=== PATIENT | male | born 1985 | race Caucasian/White ===

== ENCOUNTER 2018-02-16 23:24 | Emergency (ER) | payer OTHER ==
[~2018-02-16] VITALS: Ht 182.9 cm; Wt 90.0 kg
[2018-02-17 00:06] VITALS: BP 142/63; PULSE 78; RESP 18; TEMP 98.3; O2SAT 100
[2018-02-17 00:43] LABS: AUTOMATED NEUTROPHIL # 3.2 TH/MM3 (1.8-7.7); BASOPHIL % 0.6 % (0.0-2.0); EOSINOPHIL # 0.1 TH/MM3 (0-0.4); EOSINOPHIL % 1.8 % (0.0-4.0); HEMATOCRIT 41.5 % (39.0-51.0); HEMOGLOBIN 14.5 GM/DL (13.0-17.0); LYMPH % 41.7 % (9.0-44.0); LYMPHOCYTE # 2.7 TH/MM3 (1.0-4.8); MEAN CELL VOLUME 87.8 FL (80.0-100.0); MEAN CORPUSCULAR HEMOGLOBIN 30.7 PG (27.0-34.0); MEAN PLATELET VOLUME 9.1 FL (7.0-11.0); MONO % 7.9 % (0.0-8.0); MONOCYTE # 0.5 TH/MM3 (0-0.9); PLATELET COUNT 242 TH/MM3 (150-450); RED BLOOD COUNT 4.73 MIL/MM3 (4.50-5.90); RED CELL DISTRIBUTION WIDTH 13.6 % (11.6-17.2); WHITE BLOOD COUNT 6.6 TH/MM3 (4.0-11.0)
[2018-02-17 00:54] LABS: ALBUMIN 4.1 GM/DL (3.4-5.0); ALT (GPT) 237 U/L (12-78); AST (GOT) 154 U/L (15-37); BICARBONATE 28.2 MEQ/L (21.0-32.0); BLOOD UREA NITROGEN 6 MG/DL (7-18); CALCIUM 8.4 MG/DL (8.5-10.1); CHLORIDE 106 MEQ/L (98-107); GLOMERULAR FILTRATION RATE 98 ML/MIN (>89); GLUCOSE,RANDOM 85 MG/DL (74-106); SODIUM (NA) 142 MEQ/L (136-145)
[2018-02-17 00:56] LABS: ALKALINE PHOSPHATASE 95 U/L (45-117); TOTAL BILIRUBIN ADULT 0.4 MG/DL (0.2-1.0); TOTAL PROTEIN 8.4 GM/DL (6.4-8.2)
--- NOTE | 2018-02-17 02:17 | PD ---
HPI Chief Complaint: Psychiatric Symptoms Time Seen by Provider: 02:15 Travel History International Travel<30 days: No Contact w/Intl Traveler<30days: No Traveled to known affect area: No History of Present Illness HPI 32-year-old white male presents to emergency department under [place] act by PD. Patient had sent suicide suggested text messages to his girlfriend. Patient states that he has a history of alcohol abuse. 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 Patient admits to drinking on the job. He denies any toxic ingestions. He denies any plan on self-harm. No homicidal ideation. Patient does smoke marijuana. PFSH Past Medical History Narrative Medical Chronic alcohol abuse, seizure disorder Diminished Hearing: No Neurologic: Yes (EPILIEPSY) Seizures: Yes (NO SEIZURE IN OVER 10 YRS) Tetanus Vaccination: < 5 Years Past Surgical History Surgical History: No Previous Surgery Social History Alcohol Use: Yes Tobacco Use: No Substance Use: Yes (MARIJUANA) Allergies-Medications (Allergen,Severity, Reaction): Coded Allergies: No Known Allergies (Unverified , 11/18/15) Reported Meds & Prescriptions Reported Meds & Active Scripts Active No Active Prescriptions or Reported Medications Review of Systems General / Constitutional: No: Fever Eyes: No: Visual changes HENT: No: Headaches Cardiovascular: No: Chest Pain or Discomfort Respiratory: No: Shortness of Breath Gastrointestinal: No: Abdominal Pain Genitourinary: No: Dysuria Musculoskeletal: No: Pain Skin: No Rash Neurologic: No: Weakness Psychiatric: Positive: Mood Disorder, Substance Abuse, No: Anxiety, Depression , Suicidal Ideations, Disorder of Thought, Homicidal Ideation Endocrine: No: Polydipsia Hematologic/Lymphatic: No: Easy Bruising Physical Exam Narrative GENERAL: Well-nourished, well-developed patient. SKIN: Warm and dry. HEAD: Normocephalic and atraumatic. EYES: No scleral icterus. No injection or drainage. ENT: No nasal drainage noted. Mucous membranes pink. Airway patent. NECK: Supple, trachea midline. Moves head freely without obvious discomfort. CARDIOVASCULAR: Regular rate and rhythm without murmurs, gallops, or rubs. RESPIRATORY: Breath sounds equal bilaterally. No accessory muscle use. GASTROINTESTINAL: Abdomen soft, non-tender, nondistended. EXTREMITIES: No cyanosis or edema. BACK: Nontender without obvious deformity. No CVA tenderness. NEURO: Patient is alert and oriented. no sensorimotor deficits. Nonfocal. Normal speech. PSYCH: No delusions. No auditory or visual hallucinations. Data Data Last Documented VS Vital Signs Date Time Temp Pulse Resp B/P (MAP) Pulse Ox O2 Delivery O2 Flow Rate FiO2 02/17/18 02:28 98.9 89 18 115/58 (77) 95 Room Air Orders Orders Complete Blood Count With Diff (02/17/18 00:04) Comprehensive Metabolic Panel (02/17/18 00:04) Psych Screen (02/17/18 00:04) Drug Screen, Random Urine (02/17/18 00:04) Alcohol (Ethanol) (02/17/18 00:04) Diet Regular Basic (02/17/18 Breakfast) Labs Laboratory Tests Test 02/17/18 00:17 02/17/18 00:19 White Blood Count 6.6 TH/MM3 Red Blood Count 4.73 MIL/MM3 Hemoglobin 14.5 GM/DL Hematocrit 41.5 % Mean Corpuscular Volume 87.8 FL Mean Corpuscular Hemoglobin 30.7 PG Mean Corpuscular Hemoglobin Concent 35.0 % Red Cell Distribution Width 13.6 % Platelet Count 242 TH/MM3 Mean Platelet Volume 9.1 FL Neutrophils (%) (Auto) 48.0 % Lymphocytes (%) (Auto) 41.7 % Monocytes (%) (Auto) 7.9 % Eosinophils (%) (Auto) 1.8 % Basophils (%) (Auto) 0.6 % Neutrophils # (Auto) 3.2 TH/MM3 Lymphocytes # (Auto) 2.7 TH/MM3 Monocytes # (Auto) 0.5 TH/MM3 Eosinophils # (Auto) 0.1 TH/MM3 Basophils # (Auto) 0.0 TH/MM3 CBC Comment DIFF FINAL Differential Comment Blood Urea Nitrogen 6 MG/DL Creatinine 0.90 MG/DL Random Glucose 85 MG/DL Total Protein 8.4 GM/DL Albumin 4.1 GM/DL Calcium Level 8.4 MG/DL Alkaline Phosphatase 95 U/L Aspartate Amino Transf (AST/SGOT) 154 U/L Alanine Aminotransferase (ALT/SGPT) 237 U/L Total Bilirubin 0.4 MG/DL Sodium Level 142 MEQ/L Potassium Level 3.9 MEQ/L Chloride Level 106 MEQ/L Carbon Dioxide Level 28.2 MEQ/L Anion Gap 8 MEQ/L Estimat Glomerular Filtration Rate 98 ML/MIN Ethyl Alcohol Level 130 MG/DL Urine Opiates Screen NEG Urine Barbiturates Screen NEG Urine Amphetamines Screen NEG Urine Benzodiazepines Screen NEG Urine Cocaine Screen NEG Urine Cannabinoids Screen POS MDM Medical Decision Making Medical Screen Exam Complete: Yes Emergency Medical Condition: Yes Medical Record Reviewed: Yes Interpretation(s) Laboratory Tests Test 02/17/18 00:17 02/17/18 00:19 White Blood Count 6.6 TH/MM3 Red Blood Count 4.73 MIL/MM3 Hemoglobin 14.5 GM/DL Hematocrit 41.5 % Mean Corpuscular Volume 87.8 FL Mean Corpuscular Hemoglobin 30.7 PG Mean Corpuscular Hemoglobin Concent 35.0 % Red Cell Distribution Width 13.6 % Platelet Count 242 TH/MM3 Mean Platelet Volume 9.1 FL Neutrophils (%) (Auto) 48.0 % Lymphocytes (%) (Auto) 41.7 % Monocytes (%) (Auto) 7.9 % Eosinophils (%) (Auto) 1.8 % Basophils (%) (Auto) 0.6 % Neutrophils # (Auto) 3.2 TH/MM3 Lymphocytes # (Auto) 2.7 TH/MM3 Monocytes # (Auto) 0.5 TH/MM3 Eosinophils # (Auto) 0.1 TH/MM3 Basophils # (Auto) 0.0 TH/MM3 CBC Comment DIFF FINAL Differential Comment Blood Urea Nitrogen 6 MG/DL Creatinine 0.90 MG/DL Random Glucose 85 MG/DL Total Protein 8.4 GM/DL Albumin 4.1 GM/DL Calcium Level 8.4 MG/DL Alkaline Phosphatase 95 U/L Aspartate Amino Transf (AST/SGOT) 154 U/L Alanine Aminotransferase (ALT/SGPT) 237 U/L Total Bilirubin 0.4 MG/DL Sodium Level 142 MEQ/L Potassium Level 3.9 MEQ/L Chloride Level 106 MEQ/L Carbon Dioxide Level 28.2 MEQ/L Anion Gap 8 MEQ/L Estimat Glomerular Filtration Rate 98 ML/MIN Ethyl Alcohol Level 130 MG/DL Urine Opiates Screen NEG Urine Barbiturates Screen NEG Urine Amphetamines Screen NEG Urine Benzodiazepines Screen NEG Urine Cocaine Screen NEG Urine Cannabinoids Screen POS Differential Diagnosis MDM: High Differential diagnoses: Schizophrenia, schizoaffective disorder, bipolar, anxiety, depression, adjustment reaction, mood disorder NOS, ODD, depressive disorder NOS, dementia, dementia with agitation, psychosis NOS, substance induced mood disorder, DMDD, Asperger syndrome, infection,electrolyte abnormality, malingering. Narrative Course Mental health screening discussed with the patient. Psychiatric screen ordered. The patient is been medically cleared. This is medical clearance for psychiatric admission, alcohol intoxication, alcohol abuse Diagnosis Primary Impression: Medical clearance for psychiatric admission Additional Impressions: alcohol intoxication alcohol abuse Scripts No Active Prescriptions or Reported Meds Condition: Hima Garza Feb 17, 2018 02:17
[2018-02-17 02:28] VITALS: BP 115/58; PULSE 89; RESP 18; TEMP 98.9; O2SAT 95
[2018-02-17 06:37] VITALS: BP 127/60; PULSE 73; RESP 17; TEMP 98.6; O2SAT 97
--- NOTE | 2018-02-17 09:38 | PD ---
Physical Exam Time Seen by Provider: 09:[address] Grijalva has evaluated patient, lifted Dixon act and cleared patient for discharge. Data Data Last Documented VS Vital Signs Date Time Temp Pulse Resp B/P (MAP) Pulse Ox O2 Delivery O2 Flow Rate FiO2 02/17/18 06:37 98.6 73 17 127/60 (82) 97 Room Air Orders Orders Complete Blood Count With Diff (02/17/18 00:04) Comprehensive Metabolic Panel (02/17/18 00:04) Psych Screen (02/17/18 00:04) Drug Screen, Random Urine (02/17/18 00:04) Alcohol (Ethanol) (02/17/18 00:04) Diet Regular Basic (02/17/18 Breakfast) Labs Laboratory Tests Test 02/17/18 00:17 02/17/18 00:19 White Blood Count 6.6 TH/MM3 Red Blood Count 4.73 MIL/MM3 Hemoglobin 14.5 GM/DL Hematocrit 41.5 % Mean Corpuscular Volume 87.8 FL Mean Corpuscular Hemoglobin 30.7 PG Mean Corpuscular Hemoglobin Concent 35.0 % Red Cell Distribution Width 13.6 % Platelet Count 242 TH/MM3 Mean Platelet Volume 9.1 FL Neutrophils (%) (Auto) 48.0 % Lymphocytes (%) (Auto) 41.7 % Monocytes (%) (Auto) 7.9 % Eosinophils (%) (Auto) 1.8 % Basophils (%) (Auto) 0.6 % Neutrophils # (Auto) 3.2 TH/MM3 Lymphocytes # (Auto) 2.7 TH/MM3 Monocytes # (Auto) 0.5 TH/MM3 Eosinophils # (Auto) 0.1 TH/MM3 Basophils # (Auto) 0.0 TH/MM3 CBC Comment DIFF FINAL Differential Comment Blood Urea Nitrogen 6 MG/DL Creatinine 0.90 MG/DL Random Glucose 85 MG/DL Total Protein 8.4 GM/DL Albumin 4.1 GM/DL Calcium Level 8.4 MG/DL Alkaline Phosphatase 95 U/L Aspartate Amino Transf (AST/SGOT) 154 U/L Alanine Aminotransferase (ALT/SGPT) 237 U/L Total Bilirubin 0.4 MG/DL Sodium Level 142 MEQ/L Potassium Level 3.9 MEQ/L Chloride Level 106 MEQ/L Carbon Dioxide Level 28.2 MEQ/L Anion Gap 8 MEQ/L Estimat Glomerular Filtration Rate 98 ML/MIN Ethyl Alcohol Level 130 MG/DL Urine Opiates Screen NEG Urine Barbiturates Screen NEG Urine Amphetamines Screen NEG Urine Benzodiazepines Screen NEG Urine Cocaine Screen NEG Urine Cannabinoids Screen POS MDM Supervised Visit with ANTON: No Narrative Course Dr. Grijalva has evaluated patient, lifted Zack goncalves and cleared patient for discharge. Patient contracts safety. Denies suicidal or homicidal ideations. Patient will be provided community resource packet to [facility] for follow-up. Has friends and family for support. Patient was medically cleared by alternate provider prior to psych screening. Patient has been evaluated by psychiatry and and is now cleared for discharge. Diagnosis Primary Impression: alcohol abuse Additional Impression: alcohol intoxication Referrals: [facility] (Out patient) [facility] Primary Care Physician Psychiatrist Adeola GONCALVES Behavioral Patient Instructions: Abuse of Alcohol (ED), Alcohol Dependence (ED), Alcohol Intoxication (ED), General Instructions Additional Instruction: Contract safety to your self and others Stop drinking alcohol Follow-up in the community for support, such as Alcoholics Anonymous Follow-up with psychiatry Follow-up with primary care provider Follow-up with Charles Marte Return to the emergency department immediately with worsening of symptoms Med/Other Pt SpecificInfo: No Change to Meds, No Meds Exist/No RX given Scripts No Active Prescriptions or Reported Meds Disposition: 01 DISCHARGE HOME Condition: Stable Rocio Pérez Feb 17, 2018 09:38
--- NOTE | 2018-02-17 14:36 | PD.PSY.CON ---
Provisional Diagnosis Admission Date [place] I. Alcohol-induced mood disorder, alcohol and cannabis use disorder [place] II. Deferred [place] III. No significant medical history History of Present Illness Service Psychiatry Consult Requested By ER Reason for Consult Zack goncalves Primary Care Physician No Primary Care Physician HPI Patient was seen this morning at 9:30 AM the patient is a 32-year-old man, domiciled in [place] with his girlfriend, employed as a brokerage purchase and sale clerk, college student, without no previous psychiatric history, no previous suicide attempts, never been admitted in psychiatry, alcohol and cannabis use disorder, no significant medical history, who presents to emergency department under [place] act by PD. Patient had sent suicide suggested text messages to his girlfriend. On psychiatric evaluation the patient is calm, cooperative, he denies depressive symptoms, he denies suicidal ideation. He says that last night he was just too drunk and he was never harm himself. He denies visual and auditory hallucinations. I contacted his girl, her name is Betty, , she reports that the patient was drunk, she does not think that she wanted to kill himself, she was just scare. She reports that she feels safe taking the patient back home. She will come personally to pick him up. Review of Systems Constitutional: DENIES: Diaphoretic episodes, Fatigue, Fever, Weight gain, Weight loss, Chills, Dizziness, Change in appetite, Night Sweats Endocrine: DENIES: Heat/cold intolerance, Polydipsia, Polyuria, Polyphagia Eyes: DENIES: Blurred vision, Diplopia, Eye inflammation, Eye pain, Vision loss , Photosensitivity, Double Vision Ears, nose, mouth, throat: DENIES: Tinnitus, Hearing loss, Vertigo, Nasal discharge, Oral lesions, Throat pain, Hoarseness, Ear Pain, Running Nose, Epistaxis, Sinus Pain, Toothache, Odynophagia Respiratory: DENIES: Apneas, Cough, Snoring, Wheezing, Hemoptysis, Sputum production, Shortness of breath Cardiovascular: DENIES: Chest pain, Palpitations, Syncope, Dyspnea on Exertion , PND, Lower Extremity Edema, Orthopnea, Claudication Gastrointestinal: DENIES: Abdominal pain, Black stools, Bloody stools, Constipation, Diarrhea, Nausea, Vomiting, Difficulty Swallowing, Anorexia Genitourinary: DENIES: Sexual dysfunction, Urinary frequency, Urinary incontinence, Urgency, Hematuria, Dysuria, Nocturia, Penile Discharge, Testicular Pain, Testicular Swelling Musculoskeletal: DENIES: Joint pain, Muscle aches, Stiffness, Joint Swelling, Back pain, Neck pain Integumentary: DENIES: Abnormal pigmentation, Nail changes, Pruritus, Rash Hematologic/lymphatic: DENIES: Bruising, Lymphadenopathy Immunologic/allergic: DENIES: Eczema, Urticaria Neurologic: DENIES: Abnormal gait, Headache, Localized weakness, Paresthesias, Seizures, Speech Problems, Tremor, Poor Balance Psychiatric: DENIES: Anxiety, Confusion, Mood changes, Depression, Hallucinations, Agitation, Suicidal Ideation, Homicidal Ideation, Delusions Past Family Social History Coded Allergies: No Known Allergies (Unverified , 11/18/15) No Active Prescriptions or Reported Meds Family Psych History No family psychiatric history Social History Patient was born and raised in [place], he lives in [place] with his girlfriend, employed as a brokerage purchase and sale clerk, is a college student Patient's Strengths (min. 2) Employed Physical Exam Vital Signs Vital Signs Date Time Temp Pulse Resp B/P (MAP) Pulse Ox O2 Delivery O2 Flow Rate FiO2 02/17/18 06:37 98.6 73 17 127/60 (82) 97 Room Air Lab Results Test 02/17/18 00:17 02/17/18 00:19 White Blood Count 6.6 TH/MM3 Red Blood Count 4.73 MIL/MM3 Hemoglobin 14.5 GM/DL Hematocrit 41.5 % Mean Corpuscular Volume 87.8 FL Mean Corpuscular Hemoglobin 30.7 PG Mean Corpuscular Hemoglobin Concent 35.0 % Red Cell Distribution Width 13.6 % Platelet Count 242 TH/MM3 Mean Platelet Volume 9.1 FL Neutrophils (%) (Auto) 48.0 % Lymphocytes (%) (Auto) 41.7 % Monocytes (%) (Auto) 7.9 % Eosinophils (%) (Auto) 1.8 % Basophils (%) (Auto) 0.6 % Neutrophils # (Auto) 3.2 TH/MM3 Lymphocytes # (Auto) 2.7 TH/MM3 Monocytes # (Auto) 0.5 TH/MM3 Eosinophils # (Auto) 0.1 TH/MM3 Basophils # (Auto) 0.0 TH/MM3 CBC Comment DIFF FINAL Differential Comment Blood Urea Nitrogen 6 MG/DL Creatinine 0.90 MG/DL Random Glucose 85 MG/DL Total Protein 8.4 GM/DL Albumin 4.1 GM/DL Calcium Level 8.4 MG/DL Alkaline Phosphatase 95 U/L Aspartate Amino Transf (AST/SGOT) 154 U/L Alanine Aminotransferase (ALT/SGPT) 237 U/L Total Bilirubin 0.4 MG/DL Sodium Level 142 MEQ/L Potassium Level 3.9 MEQ/L Chloride Level 106 MEQ/L Carbon Dioxide Level 28.2 MEQ/L Anion Gap 8 MEQ/L Estimat Glomerular Filtration Rate 98 ML/MIN Ethyl Alcohol Level 130 MG/DL Urine Opiates Screen NEG Urine Barbiturates Screen NEG Urine Amphetamines Screen NEG Urine Benzodiazepines Screen NEG Urine Cocaine Screen NEG Urine Cannabinoids Screen POS Mental Status Examination Appearance: Appropriate Consciousness: Alert Orientation: x4 Motor Activity: Normal gait Speech: Unremarkable Language: Adequate Fund of Knowledge: Adequate Attention and Concentration: Adequate Memory: Unremarkable Mood: Appropriate Affect: Appropriate Thought Process & Associations: Intact Thought Content: Appropriate Hallucination Type: None Delusion Type: None Suicidal Ideation: No Suicidal Plan: No Suicidal Intention: No Homicidal Ideation: No Homicidal Plan: No Homicidal Intention: No Insight: Adequate Judgment: Adequate Assessment & Plan Problem List: (1) Alcohol abuse with alcohol-induced mood disorder ICD Codes: F10.14 - Alcohol abuse with alcohol-induced mood disorder Assessment & Plan: The patient does not meet criteria for involuntary psychiatric admission at this moment, he denies suicidal and homicidal ideation , he denies visual and auditory hallucinations. He denies depression, he denies anxiety, he denies alyssia and psychosis. Recent expressing suicidality was secondary to acute alcohol intoxication. Dixon act will be lifted. Assessment & Plan Estimated LOS: Inocencio Lopez MD Feb 17, 2018 14:36
== END 2018-02-17 10:16 | disposition home or self-care (01) ==
LOC: NEPJ 23:24
DX: F10.129 Alcohol abuse with intoxication, unspecified (principal); F12.10 Cannabis abuse, uncomplicated; F39 Unspecified mood [affective] disorder; G40.909 Epilepsy, unspecified, not intractable, without status epilepticus
CPT/HCPCS: 80053; 80307; 85025; 99283